=== PATIENT | male | born 1945 | race Caucasian/White ===

== ENCOUNTER 2018-12-24 18:29 | Emergency (ER) | payer OTHER, SELFPAY ==
[2018-12-24 18:40] VITALS: BP 120/59; PULSE 81; RESP 20; TEMP 36.7; O2SAT 97
--- NOTE | 2018-12-24 18:41 | DI.RAD.S_ITS ---
PROCEDURE: XR HAND LT MIN 3V INDICATIONS: lac from table saw digits 1-3 TECHNIQUE: 3 views of the hand(s) acquired. COMPARISON: None. FINDINGS: Bones: There is mildly displaced intra-articular fracture at the base of the distal second phalanx as well as small avulsion fractures at the distal aspect of the second middle phalanx. Small areas of adjacent osseous calcifications are noted. Soft tissues: No suspicious soft tissue calcifications. IMPRESSION: Fractures of the middle and distal second phalanx as above. Dictated by: Kimberley Choi M.D. on 12/24/2018 at 19:05 Approved by: Kimberley Choi M.D. on 12/24/2018 at 19:06
--- NOTE | 2018-12-24 18:48 | PC.NURSE ---
wound soak while waiting for x ray.
--- NOTE | 2018-12-24 19:26 | ED.WOUNDLAC ---
HPI - Wound/Laceration General Chief Complaint: Wound/Laceration Stated Complaint: Cut Fingers on Table Saw Time Seen by Provider: 12/24/18 19:26 Source: patient and family Mode of arrival: Ambulatory Limitations: no limitations History of Present Illness HPI narrative: This is a 73-year-old male comes to the emergency department with complaint of injuries to the 2nd 3rd and 4th fingers on his left hand. Patient was at home using a table saw when he caught his fingers. Patient states that it is painful but kind of feels like he hit his fingers with a hammer. He defers any pain medications currently. He does have sensation to touch in the distal fingers, he can flex and straight them although it is uncomfortable. Patient states his tetanus is up-to-date. He states he takes medication for hypertension but denies any medical is streams. He has had a prostate surgery but denies any other surgical history. Denies any allergies to medications. Patient lives on [facility]. He is right handed. Related Data Previous Rx's Medication Instructions Recorded lisinopril-hydrochlorothiazide 1 tab PO QDAY #90 tab 08/15/16 cephalexin [Keflex] 500 mg PO QID #40 cap 12/24/18 hydrocodone-acetaminophen [[place]] 1 tab PO Q6H PRN #10 tab 12/24/18 Review of Systems Review of Systems ROS Unobtainable: All systems reviewed & are unremarkable except as noted in HPI and below Exam Narrative Exam Narrative: GENERAL: Alert and oriented x three, well-nourished, well-appearing male in mild distress. HEENT: Head normocephalic, atraumatic, EOMI, pupils reactive, face symmetric, moist mucous membranes NECK: Supple, full range of motion CARDIOVASCULAR: Regular rate and rhythm without murmurs, rubs or gallops. RESPIRATORY: Breath sounds equal bilaterally, no wheezes rales or rhonchi. ABDOMEN: Soft, nontender. Normoactive bowel sounds all 4 quadrants. No guarding or rebound, rigidity, no mass EXTREMITIES: Patient has avulsion lacerations to the 2nd 3rd and 4th fingers. Patient has some small chunks of tissue missing but the majority of tissue is present and I am unable to visualize any bone. The majority of the injuries are in the more mid finger towards the distal end but not necessarily including the pad of the finger in all 3 fingers. There is no nail involvement. It is all on the volar side of the fingers. Patient is able to flex and straighten his fingers although he states it is uncomfortable. He does have cap refill less than 2 seconds in all 3 fingers. He has sensation to light touch although slightly decreased from the 12 to 2 o'clock position on the 2nd finger. He can feel sensation but slightly decreased. Patient has sensation throughout otherwise. He has 2+ radial pulse. NEUROLOGICAL: Cranial nerves II through XII grossly intact. Moving all extremities SKIN: Warm, dry, no petechiae, no rashes or lesions other than noted above Initial Vital Signs Initial Vital Signs: Vital Signs Temperature 98.1 F 12/24/18 18:40 Pulse Rate 81 12/24/18 18:40 Respiratory Rate 20 12/24/18 18:40 Blood Pressure 120/59 L 12/24/18 18:40 Pulse Oximetry 97 12/24/18 18:40 Course Orders Ordered: ED Orders 12/24/18 18:41 XR hand LT min 3V Stat Discontinued Medications Cephalexin HCl (Keflex) 500 mg PO NOW ONE Stop: 12/24/18 19:55 Last Admin: 12/24/18 20:08 Dose: 500 mg Documented by: AMBER Vital Signs Vital signs: Vital Signs - 8 hr 12/24/18 18:40 12/24/18 20:43 Temperature 98.1 F Pulse Rate 81 74 Respiratory Rate 20 18 Blood Pressure 120/59 L 118/68 Pulse Oximetry 97 99 MDM - Wound/Laceration Imaging Data hand xray: My impression: [address] [address] XRay Report Signed Patient: Gumaro JainMR#: [id number] : 6Acct:[id number] Age/Sex: 73 / MDate of Service: 12/24/18 Loc: ED Accession Number: [id number] Procedure: XR hand LT min 3V Ordering Provider: Afua Tamez D.O. PROCEDURE: XR HAND LT MIN 3V INDICATIONS: lac from table saw digits 1-3 TECHNIQUE: 3 views of the hand(s) acquired. COMPARISON: None. FINDINGS: Bones: There is mildly displaced intra-articular fracture at the base of the distal second phalanx as well as small avulsion fractures at the distal aspect of the second middle phalanx. Small areas of adjacent osseous calcifications are noted. Soft tissues: No suspicious soft tissue calcifications. IMPRESSION: Fractures of the middle and distal second phalanx as above. Dictated by: Kimberley Choi M.D. on 12/24/2018 at 19:05 Approved by: Kimberley Choi M.D. on 12/24/2018 at 19:06 Radiologist's impression: MDM Narrative Medical decision making narrative: Case was discussed with Dr. wu, patient does have fractures at the mid and distal 2nd phalanx. Patient also has avulsion injuries all the majority of the tissue was present they is enough missing that the tissue is not easily pulled together. Discussed with Dr. wu plan for oral antibiotics, wound care with some impregnated gauze. And plan for follow-up in the next week. Patient and daughter were instructed on wound care. Plan for short course of pain medication for patient although he defers any currently. I discussed reasons to return and signs and symptoms to watch for such as infection, decreased sensation, etc. Discharge Plan Departure Patient Disposition: Home Clinical Impression: Laceration of multiple sites of left hand and fingers Qualifiers: Encounter type: initial encounter Qualified Code(s): S61.412A - Laceration without foreign body of left hand, initial encounter Open fracture of finger of left hand Qualifiers: Encounter type: initial encounter Finger: middle finger Discharge Date/Time: 12/24/18 20:44 Instructions: DI for Open Laceration Activity Restrictions/Additional Instructions: Call tomorrow morning to set up follow-up with Orthopedic surgery. Below is the contact number for follow-up. Follow-up in the next 5-7 days. You may take ibuprofen up to 600 mg every 6 hours as needed for pain, you may take Tylenol up to a 1000 mg every 8 hours for pain. You may take prescription pain medication as directed. If you are taking this medication do not take Tylenol as you're maximum amount of Tylenol is 3000 mg in 24 hours. Splint Care: Keep splint clean and dry. Elevated affected body part to decrease swelling. OK to use ice pack on the affected body part. Use for 15-20 minutes each time, for 5-6x per day. If you develop worsening pain, numbness, tingling, discoloration of the affected body part, loosen the splint by loosening the ORALIA wrap, and either see your doctor for an urgent re-assessment, or return to the Emergency Department. Return to the Emergency Department for any new or worsening symptoms. Wound Care: Keep wound(s) clean and dry. Wash daily with soap and water only, pat/air dry. Do not use over the counter products (alcohol or peroxide)on the wounds unless instructed by a physician. You may use a small amount of triple antibiotic ointment to affected area. If wound condition worsens (increased/expanding redness, developing fluid blisters, or worsening pain), either contact your doctor for an urgent re-assessment , or return to the Emergency Department. Return to the Emergency Department for any new or worsening symptoms. Return if fever greater than 100.4 Fahrenheit, increased swelling, increasing pain or worsening symptoms such as increased discharge or spreading redness. Prescriptions: New hydrocodone-acetaminophen [[place]] 5-325 mg tablet 1 tab PO Q6H PRN (Reason: pain) Qty: 10 RF: 0 cephalexin [Keflex] 500 mg capsule 500 mg PO QID Qty: 40 RF: 0 No Action lisinopril-hydrochlorothiazide 20 MG/12.5 MG tablet 1 tab PO QDAY Qty: 90 RF: 3 Referrals: Krysta Christensen MD [Primary Care Provider] - Gumaro Hu MD [Physician] -
[2018-12-24] MEDS: cephALEXin 250 MG CAPSULE 500 MG PO (20:08)
--- NOTE | 2018-12-24 20:39 | PC.NURSE ---
Pr Joi, pt first second and third finger pads were cleaned with surgical scrub. 2 Aquacell ag extra 2x2 pads placed over lacerations, telfa pads placed over with kerlex used to keep dressing is place. orthoglass splint and jovani bandage placed to prevent movment and protect from hitting fingers on things. Pt restated precautions for too tight of a splint and how to loosen it if needed. Pt denies further needs.
[2018-12-24 20:43] VITALS: BP 118/68; PULSE 74; RESP 18; O2SAT 99
== END 2018-12-24 20:44 | disposition home or self-care (01) ==
PROVIDERS: Emergency Provider Emergency Medicine; PCP Family Medicine
DX: S62.623B Displaced fracture of middle phalanx of left middle finger, initial encounter for open fracture (principal); W31.2XXA Contact with powered woodworking and forming machines, initial encounter
CPT/HCPCS: 73130; 99283

== ENCOUNTER → 2019-01-02 09:48 | Outpatient (CLI) | payer OTHER, SELFPAY | PROVIDERS: PCP Family Medicine; Visit Provider Family Medicine | DX: S61.201A Unspecified open wound of left index finger without damage to nail, initial encounter (principal); S61.203A Unspecified open wound of left middle finger without damage to nail, initial encounter; S61.205A Unspecified open wound of left ring finger without damage to nail, initial encounter; W31.2XXA Contact with powered woodworking and forming machines, initial encounter | CPT/HCPCS: 11042; 99203; 99213 ==

== ENCOUNTER → 2019-01-09 13:26 | Outpatient (CLI) | payer OTHER, SELFPAY | PROVIDERS: PCP Family Medicine; Visit Provider Family Medicine | DX: S61.201A Unspecified open wound of left index finger without damage to nail, initial encounter (principal); S61.203A Unspecified open wound of left middle finger without damage to nail, initial encounter; S61.205A Unspecified open wound of left ring finger without damage to nail, initial encounter; W31.2XXA Contact with powered woodworking and forming machines, initial encounter | CPT/HCPCS: 11042 ==

== ENCOUNTER → 2019-01-16 09:36 | Outpatient (CLI) | payer OTHER, SELFPAY | PROVIDERS: PCP Family Medicine; Visit Provider Family Medicine | DX: S61.201A Unspecified open wound of left index finger without damage to nail, initial encounter (principal); S61.205A Unspecified open wound of left ring finger without damage to nail, initial encounter; W31.2XXA Contact with powered woodworking and forming machines, initial encounter; S61.203D Unspecified open wound of left middle finger without damage to nail, subsequent encounter | CPT/HCPCS: 11042 ==

== ENCOUNTER → 2019-01-23 13:28 | Outpatient (CLI) | payer OTHER, SELFPAY | PROVIDERS: PCP Family Medicine; Visit Provider Family Medicine | DX: S61.201A Unspecified open wound of left index finger without damage to nail, initial encounter (principal); S61.205D Unspecified open wound of left ring finger without damage to nail, subsequent encounter | CPT/HCPCS: 97597 ==

== ENCOUNTER → 2021-07-22 08:59 | Outpatient (CLI) | payer MEDICARE, SELFPAY ==
[2021-07-22 18:32] LABS: Add Manual Diff / Slide Review NO; Basophils Absolute Auto 0 /uL (0-100); Basophils Percent Auto 0.5 % (0-2); Eosinophils Absolute Auto 100 /uL (0-450); Eosinophils Percent Auto 2.5 % (2-4); Hematocrit 40.7 % (41-53); Hemoglobin 14.1 g/dL (13.5-17.5); Lymphocytes Absolute Auto 1100 /uL (1100-4500); Lymphocytes Percent Auto 29.4 % (25-40); Mean Corpuscular HGB Conc 34.7 % (30-36); Mean Corpuscular Hemoglobin 31.7 PG (26-34); Mean Corpuscular Volume 91.3 fL (80-100); Monocytes Absolute Auto 600 /uL (0-900); Monocytes Percent Auto 15.2 % (3-14); Neutrophils Absolute Auto 2000 /uL (1500-7000); Neutrophils Percent Auto 52.4 % (50-75); Platelet Count 256 X10^3/uL (150-400); Red Blood Cell Count 4.46 X10^6/uL (4.5-5.9); Red Cell Distribution Width 13.2 % (11.6-14.8); White Blood Cell Count 3.9 X10^3/uL (4.5-11.0)
[2021-07-22 18:46] LABS: Alanine Aminotransferase 25 IU/L (<50); Albumin 3.9 g/dL (3.5-5.0); Albumin Globulin Ratio 1.3 (1.0-2.8); Alkaline Phosphatase 61 U/L (38-126); Aspartate Aminotransferase 41 IU/L (17-59); BUN Creatinine Ratio 17.9 (6-22); Bilirubin Total 0.6 mg/dL (0.2-1.3); Blood Urea Nitrogen 21 mg/dL (9-20); Calcium 9.2 mg/dL (8.4-10.2); Carbon Dioxide 27 mmol/L (22-32); Chloride 103 mmol/L (98-107); Cholesterol 162 mg/dL (140-199); Estimated Glomerular Filt Rate > 60 mL/min (>60); Globulin 2.9 g/dL (1.7-4.1); Glucose 97 mg/dL (80-110); HDL Cholesterol 40 mg/dL (40-60); HEMOLYSIS < 15 (0-50); LDL Cholesterol Calculated 110 mg/dL (<100); Potassium 4.3 mmol/L (3.4-5.1); Sodium 135 mmol/L (137-145); Total Protein 6.8 g/dL (6.3-8.2); Triglycerides 58 mg/dL (35-150)
[2021-07-22 19:14] LABS: Prostate Specific Antigen Scrn < 0.064 ng/mL (0.1-4.0)
== END ==
PROVIDERS: PCP Family Medicine; Visit Provider Family Medicine
DX: C61 Malignant neoplasm of prostate (principal); I10 Essential (primary) hypertension; N18.30 Chronic kidney disease, stage 3 unspecified; R97.20 Elevated prostate specific antigen [PSA]; Z00.00 Encounter for general adult medical examination without abnormal findings; Z12.5 Encounter for screening for malignant neoplasm of prostate
CPT/HCPCS: 80053; 80061; 85025; G0103

== ENCOUNTER → 2022-06-08 12:03 | Outpatient (CLI) | payer MEDICARE, SELFPAY ==
[2022-06-08 19:54] LABS: Prostate Specific Antigen < 0.064 ng/mL (0.10-4.00)
[2022-06-09 16:13] LABS: Hep C Virus Ab w/Reflex Quant NEGATIVE s/c (NEGATIVE)
== END ==
PROVIDERS: Physician Assistant; PCP Family Medicine; Visit Provider Family Medicine
DX: C61 Malignant neoplasm of prostate (principal); Z11.59 Encounter for screening for other viral diseases
CPT/HCPCS: 84153; 86803

== ENCOUNTER → 2023-01-05 10:18 | Outpatient (CLI) | payer MEDICARE, SELFPAY ==
[2023-01-05 19:15] LABS: Add Manual Diff / Slide Review NO; Basophils Absolute Auto 0 /uL (0-100); Basophils Percent Auto 0.4 % (0-2); Eosinophils Absolute Auto 100 /uL (0-450); Eosinophils Percent Auto 2.4 % (2-4); Hematocrit 41.9 % (41-53); Hemoglobin 14.3 g/dL (13.5-17.5); Lymphocytes Absolute Auto 1400 /uL (1100-4500); Mean Corpuscular HGB Conc 34.1 % (30-36); Mean Corpuscular Hemoglobin 31.7 PG (26-34); Mean Corpuscular Volume 92.8 fL (80-100); Monocytes Absolute Auto 600 /uL (0-900); Monocytes Percent Auto 12.3 % (3-14); Neutrophils Absolute Auto 2400 /uL (1500-7000); Neutrophils Percent Auto 52.9 % (50-75); Platelet Count 226 X10^3/uL (150-400); Red Blood Cell Count 4.51 X10^6/uL (4.5-5.9); Red Cell Distribution Width 13.1 % (11.6-14.8); White Blood Cell Count 4.5 X10^3/uL (4.5-11.0)
[2023-01-05 19:28] LABS: Alanine Aminotransferase 26 IU/L (<50); Albumin 3.8 g/dL (3.5-5.0); Albumin Globulin Ratio 1.2 (1.0-2.8); Alkaline Phosphatase 58 U/L (38-126); Aspartate Aminotransferase 37 IU/L (17-59); BUN Creatinine Ratio 23.8 (6-22); Bilirubin Total 0.6 mg/dL (0.2-1.3); Blood Urea Nitrogen 25 mg/dL (9-20); Calcium 9.6 mg/dL (8.4-10.2); Carbon Dioxide 25 mmol/L (22-32); Chloride 105 mmol/L (98-107); Cholesterol 191 mg/dL (140-199); Estimated Glomerular Filt Rate > 60 mL/min (>60); Globulin 3.3 g/dL (1.7-4.1); Glucose 94 mg/dL (80-110); HDL Cholesterol 47 mg/dL (40-60); HEMOLYSIS < 15 (0-50); LDL Cholesterol Calculated 132 mg/dL (<100); Potassium 4.1 mmol/L (3.4-5.1); Sodium 137 mmol/L (137-145); Total Protein 7.1 g/dL (6.3-8.2); Triglycerides 62 mg/dL (35-150)
[2023-01-05 19:42] LABS: Creatinine Urine Random 155.1 mg/dL
[2023-01-05 19:52] LABS: Microalbumin Urine Random < 0.6 mg/dL (0-1.6)
[2023-01-05 20:12] LABS: Prostate Specific Antigen < 0.064 ng/mL (0.10-4.00)
== END ==
PROVIDERS: PCP Family Medicine; Visit Provider Physician Assistant Medical
DX: I10 Essential (primary) hypertension; Z12.11 Encounter for screening for malignant neoplasm of colon; Z11.2 Encounter for screening for other bacterial diseases; Z11.8 Encounter for screening for other infectious and parasitic diseases; C61 Malignant neoplasm of prostate; N18.30 Chronic kidney disease, stage 3 unspecified
CPT/HCPCS: 80053; 80061; 82043; 82570; 84153; 85025

== ENCOUNTER → 2023-02-22 11:26 | Outpatient (CLI) | payer MEDICARE, SELFPAY ==
--- NOTE | 2023-02-22 11:26 | DI.CT.S_ITS ---
PROCEDURE: CT ABDOMEN PELVIS W CON INDICATIONS: RLQ pain TECHNIQUE: After the administration of oral and intravenous contrast, axial sections were acquired from the lung bases to the pubic symphysis. Coronal and sagittal reformats were performed. For radiation dose reduction, the following was used: automated exposure control, adjustment of mA and/or kV according to patient size. COMPARISON: None. FINDINGS: Image quality: Diagnostic. Lung bases: Unremarkable. Heart: No significant findings. ABDOMEN: Liver: Subcentimeter hypodensities are too small to characterize, probable cysts or hemangiomas. Gallbladder: No radiopaque gallstones or wall thickening. Biliary ducts: No biliary dilation. Pancreas: No ductal dilation. Spleen: Size is within normal limits. Adrenal Glands: No adrenal nodules. Kidneys and Ureters: No hydronephrosis. No solid mass. No complex renal cystic lesion which requires follow up. Stomach and Bowel: Normal colonic caliber, without significant wall thickening. Appendix is not definitely visualized, however there is no secondary signs of inflammation in the right lower quadrant. Peritoneum: No abnormal intraperitoneal fluid. No free air. Ventral Wall: No hernia. Abdominal Nodes: No retroperitoneal or mesenteric adenopathy by size criteria. Vessels: Aorta and inferior vena cava are normal in size. Aorto bi iliac atherosclerotic calcifications. PELVIS: Pelvic Organs: Unremarkable. Bladder: Unremarkable. Pelvic Nodes: No enlarged lymph nodes. Miscellaneous: No inguinal hernias are seen. Bones: No acute or suspicious osseous abnormality. Moderate degenerative changes of the lumbar spine, worse at L5-S1. Trace retrolisthesis of L5 on S1 . Mild dextro convex curvature of the lumbar spine centered at L2-L3. IMPRESSION: No acute findings of the abdomen pelvis to explain patient's symptoms. Dictated by: Mini Cotto M.D. on 02/22/2023 at 14:30 Approved by: Mini Cotto M.D. on 02/22/2023 at 14:37
[2023-02-22 12:38] LABS: Alanine Aminotransferase 26 IU/L (<50); Albumin Globulin Ratio 1.2 (1.0-2.8); Alkaline Phosphatase 53 U/L (38-126); Aspartate Aminotransferase 38 IU/L (17-59); BUN Creatinine Ratio 20.6 (6-22); Bilirubin Total 0.7 mg/dL (0.2-1.3); Blood Urea Nitrogen 21 mg/dL (9-20); Calcium 9.5 mg/dL (8.4-10.2); Carbon Dioxide 26 mmol/L (22-32); Chloride 104 mmol/L (98-107); Cholesterol 117 mg/dL (140-199); Estimated Glomerular Filt Rate > 60 mL/min (>60); Globulin 3.4 g/dL (1.7-4.1); Glucose 94 mg/dL (80-110); HDL Cholesterol 42 mg/dL (40-60); HEMOLYSIS < 15 (0-50); LDL Cholesterol Calculated 65 mg/dL (<100); Sodium 137 mmol/L (137-145); Total Protein 7.4 g/dL (6.3-8.2); Triglycerides 50 mg/dL (35-150)
== END ==
PROVIDERS: Physician Assistant Medical; PCP Family Medicine; Referring Provider Family Medicine; Visit Provider Family Medicine
DX: E78.00 Pure hypercholesterolemia, unspecified (principal); R10.31 Right lower quadrant pain
CPT/HCPCS: 36415; 74177; 80053; 80061; Q9967

== ENCOUNTER 2024-01-14 10:47 | Emergency (ER) | payer MEDICARE, SELFPAY ==
[2024-01-14 10:50] VITALS: BP 140/71; PULSE 60; RESP 18; TEMP 36.9; O2SAT 98; BMI 25.4
--- NOTE | 2024-01-14 10:55 | DI.RAD.S_ITS ---
PROCEDURE: XR ELBOW RT MIN 3V INDICATIONS: reduced flexion after lifting log 3 days ago. TECHNIQUE: 3 views of the elbow were acquired. COMPARISON: None. FINDINGS: Bones: No fractures or dislocations. No suspicious bony lesions. There is dystrophic calcification about the medial epicondyle and tiny osteophytes at the radial head. Soft tissues: No elbow joint effusion. No suspicious soft tissue calcifications. IMPRESSION: No acute bony abnormality or significant joint effusion. Dictated by: Nellie Booth M.D. on 01/14/2024 at 10:33 Approved by: Nellie Booth M.D. on 01/14/2024 at 10:34
[2024-01-14 10:56] VITALS: PULSE 64
--- NOTE | 2024-01-14 11:18 | ED.UPPEXIN ---
HPI - Extremity Injury (Upper) <CATHY Peace - Last Filed: 01/14/24 12:03> General Chief Complaint: Extremity Injury, Upper Stated Complaint: R elbow pain, arm swelling Time Seen by Provider: 01/14/24 11:11 Source: patient Mode of arrival: Ambulatory History of Present Illness HPI narrative: 78-year-old male, never smoker, presents to the emergency department with right elbow pain x4 days. Patient states that he was lifting a log onto a tailgate 4 days ago, but denies any sensation of popping, twinge or pain at that time. Early the next morning, patient started reporting pain of the right medial elbow and has progressively lost range of motion. Patient endorses swelling of the medial right elbow and pain with palpation or movement past 80?. Related Data Previous Rx's Medication Instructions Recorded lidocaine 5 % topical ointment 1 applic topical TID PRN Left foot 05/18/22 pain #30 grams atorvastatin 20 mg tablet 20 mg PO DAILY #90 tabs 12/28/23 losartan 50 mg-hydrochlorothiazide 1 tab PO DAILY #90 tabs 01/02/24 12.5 mg tablet oxycodone-acetaminophen 5 mg-325 1 tab PO Q4-6H PRN pain #10 tabs 01/14/24 mg tablet (Percocet) Allergies Allergy/AdvReac Type Severity Reaction Status Date / Time No Known Drug Allergies Allergy Verified 03/27/23 09:14 Review of Systems <CATHY Peace - Last Filed: 01/14/24 12:03> Review of Systems Narrative: Narrative: See HPI. GENERAL: Denies chills, fatigue, fever, sweats. HEENT: Denies sinus pain, ear pain, sore throat, difficulty swallowing, dizziness. RESPIRATORY: Denies dyspnea, cough, wheezing, sputum. CARDIOVASCULAR: Denies chest pain, palpitations, edema. GASTROINTESTINAL: Denies nausea, vomiting, abdominal pain, diarrhea, constipation. : Denies dysuria, frequency, incontinence, hematuria, urinary retention, flank pain. MSK: Denies weakness. Endorses right elbow pain. Endorses right hand mildly edematous compared to left. SKIN: Denies rash, skin lesions, or pruritis. NEUROLOGIC: Denies weakness, dizziness, headache, numbness, confusion. PSYCHIATRIC: No concerning psychosocial issues. Patient History <CATHY Peace - Last Filed: 01/14/24 12:03> Medical History Seasonal allergic rhinitis Impacted cerumen of left ear Screening, lipid Encounter for hepatitis C screening test for low risk patient H/O prostate cancer Complicated laceration of finger (~12/24/18) Hand injury (~12/24/18) Open nondisplaced fracture of distal phalanx of left index finger with routine healing (~12/28/18) Encounter for post-traumatic wound check Encounter for examination for driving license Surgical History H/O prostatectomy Social History Smoking Status: Never smoker Smoking Status: Never smoker Substance Use Type: does not use Exam <CATHY Peace - Last Filed: 01/14/24 12:03> Narrative Exam Narrative: Exam Narrative: GENERAL: This is a well-nourished, well-developed patient, in no acute distress. HEAD: Atraumatic. Normocephalic. EYES: Pupils equal round and reactive. No scleral icterus, injection or drainage. ENT: Nose without bleeding, purulent drainage. Airway patent. CARDIOVASCULAR: Regular rate and rhythm without murmurs, peripheral pulses intact, cap refill <2 sec. RESPIRATORY: Normal respiratory rate and effort. MSK: Moves all extremities. Decreased range of motion, no clubbing. Right hand mildly edematous compared to left hand. Neurovascularly intact. NEURO: A&O x 3. SKIN: Warm, dry, no rashes or lesions noted. Scabbed over wounds right hand and elbow. ELBOW: There is swelling, but no bruising or asymmetry. There is tenderness to palpation over the medial epicondyle, but no tenderness to palpation over the olecranon, lateral epicondyle. There is no specific soft tissue pain. Sensation grossly intact. Range of motion is limited due to pain. Range of motion of the shoulder and wrist is intact. Patient is unable to pronate and supinate without pain. Resistive strength for flexion and extension is intact. The contralateral elbow exam is unremarkable. Initial Vital Signs Initial Vital Signs: Vital Signs Temperature 98.5 F 01/14/24 10:50 Pulse Rate 60 01/14/24 10:50 Respiratory Rate 18 01/14/24 10:50 Blood Pressure 140/71 01/14/24 10:50 Pulse Oximetry 98 01/14/24 10:50 Oxygen Delivery Method Room Air 01/14/24 10:50 Reviewed <Farzana Cintron DO - Last Filed: 01/14/24 18:18> Initial Vital Signs Initial Vital Signs: Vital Signs Temperature 98.5 F 01/14/24 10:50 Pulse Rate 60 01/14/24 10:50 Respiratory Rate 18 01/14/24 10:50 Blood Pressure 140/71 01/14/24 10:50 Pulse Oximetry 98 01/14/24 10:50 Oxygen Delivery Method Room Air 01/14/24 10:50 Course <CATHY Peace - Last Filed: 01/14/24 12:03> Orders Ordered: ED Orders 01/14/24 10:55 XR elbow RT min 3V Stat Vital Signs Vital signs: Vital Signs - 8 hr 01/14/24 10:50 01/14/24 10:56 Temperature 98.5 F Pulse Rate 60 Pulse Rate [Right Radial] 64 Respiratory Rate 18 Blood Pressure 140/71 Pulse Oximetry 98 Oxygen Delivery Method Room Air <Farzana Cintron DO - Last Filed: 01/14/24 18:18> Orders Ordered: ED Orders 01/14/24 10:55 XR elbow RT min 3V Stat Vital Signs Vital signs: Vital Signs - 8 hr 01/14/24 10:50 01/14/24 10:56 Temperature 98.5 F Pulse Rate 60 Pulse Rate [Right Radial] 64 Respiratory Rate 18 Blood Pressure 140/71 Pulse Oximetry 98 Oxygen Delivery Method Room Air MDM - Extremity Injury (Upper) <CATHY Peace - Last Filed: 01/14/24 12:03> Differential Diagnosis Differential diagnosis: Likely other (Elbow fracture, medial epicondylitis, elbow effusion, upper extremity injury) Imaging Data Extremity x-ray #1: My Impression: Normal elbow. Radiologist's Impression: [address] [address] XRay Report Signed Patient: Gumaro Jain MR#: [id number] : 1945 Acct:[id number] Age/Sex: 78 / M Date of Service: 01/14/24 Loc: ED Accession Number: [id number] Procedure: XR elbow RT min 3V Ordering Provider: Farzana Cintron D.O. PROCEDURE: XR ELBOW RT MIN 3V INDICATIONS: reduced flexion after lifting log 3 days ago. TECHNIQUE: 3 views of the elbow were acquired. COMPARISON: None. FINDINGS: Bones: No fractures or dislocations. No suspicious bony lesions. There is dystrophic calcification about the medial epicondyle and tiny osteophytes at the radial head. Soft tissues: No elbow joint effusion. No suspicious soft tissue calcifications. IMPRESSION: No acute bony abnormality or significant joint effusion. Dictated by: Nellie Booth M.D. on 01/14/2024 at 10:33 Approved by: Nellie Booth M.D. on 01/14/2024 at 10:34 [facility] Narrative Medical decision making narrative: 78-year-old male presents to the emergency department with complaints of right elbow pain and decreased range of motion x4 days of Unknown etiology. X-ray was negative for fracture but did show medial calcification and osteophytes. Will treat with supportive care to include rest, ice, Eric wrap and elevation. Discussed pain management with patient and will provide a short course of pain medication. No previous pain medication prescriptions on record. Discussed plan of care and worsening symptoms that would necessitate a visit to the emergency department. Patient verbalized understanding and was agreeable with course of action. Discharge Plan Departure Patient Disposition: Home Clinical Impression: Pain of upper extremity Qualifiers: Laterality: right Qualified Code(s): M79.601 - Pain in right arm Instructions: DI for Elbow Pain Activity Restrictions/Additional Instructions: *You have been diagnosed with right elbow pain. It was a pleasure meeting you and I am sorry that you injured your elbow. The good news is the x-ray was normal and there are no fractures or joint effusions. Treatment for this type of injury is supportive in nature that includes Rest (modified activity), along with ice, compression wrap/splint-immobilize as directed and elevation above heart. Tylenol or Ibuprofen for discomfort. I will give you a short course of pain medication but also note that if you take 400 mg of ibuprofen with 500 mg of Tylenol, it may very well help just as well. If symptoms worsen, such as intolerable pain, increased redness or temperature of right elbow, please return to the emergency department. Otherwise, follow up with your family doctor as needed. *What to do: *Please continue to take your regular medications as directed. [x ] New medication prescriptions sent to your pharmacy: [ [facility]] [ ] New medication written as a paper prescription [ ] No new medications given *Please follow up with your primary care provider in 2-3 days, call for an appointment. Let them know you were seen in the Emergency Department and that we ask that you be seen in follow up. We will electronically transmit a record of today's note if your PCP is in our system *If you do not have a primary care provider please contact the [facility] Resource line at [phone]. They will ask some questions about your medical history and help get you set up with a doctor in the community. ? Return to ER if you should have any new, worsening or concerning symptoms, such as worsening pain, severe headache, confusion, chest pain, difficulty breathing, fever greater than 101 F, shaking chills, persistent vomiting to the point that you cannot drink fluids, or other new or worsening symptoms. Prescriptions: New oxycodone-acetaminophen [Percocet] 5-325 mg tablet 1 tab PO Q4-6H PRN (Reason: pain) Qty: 10 0RF No Action lidocaine 5 % ointment 1 applic topical TID PRN (Reason: Left foot pain) Qty: 30 3RF Rx Instructions: can use up to a maximum of three times daily atorvastatin 20 mg tablet 20 mg PO DAILY Qty: 90 0RF losartan-hydrochlorothiazide 50-12.5 mg tablet 1 tab PO DAILY Qty: 90 0RF Referrals: Renato Otoole MD [Primary Care Provider] - Stand Alone Forms: Patient Portal/API/Survey ED Sign-out <Farzana Cintron DO - Last Filed: 01/14/24 18:18> Cosign ED Attending Maria Elenaature Attestation: I was available for consultation.
== END 2024-01-14 12:08 | disposition home or self-care (01) ==
PROVIDERS: Emergency Provider Registered Nurse; Family Provider Family Medicine; PCP Family Medicine
DX: M79.601 Pain in right arm (principal)
CPT/HCPCS: 73080; 99281; 99283

== ENCOUNTER → 2024-02-23 08:12 | Outpatient (CLI) | payer MEDICARE, SELFPAY ==
[2024-02-23 20:31] LABS: Cholesterol 117 mg/dL (140-199); Glucose 95 mg/dL (80-110); HDL Cholesterol 39 mg/dL (40-60); LDL Cholesterol Calculated 66 mg/dL (<100); Triglycerides 58 mg/dL (35-150)
[2024-02-23 21:04] LABS: Prostate Specific Antigen Scrn < 0.064 ng/mL (0.1-4.0)
== END ==
PROVIDERS: Family Provider Family Medicine; PCP Family Medicine; Visit Provider Family Medicine
DX: Z13.1 Encounter for screening for diabetes mellitus (principal); Z11.59 Encounter for screening for other viral diseases; Z13.220 Encounter for screening for lipoid disorders; Z12.5 Encounter for screening for malignant neoplasm of prostate; Z13.6 Encounter for screening for cardiovascular disorders
CPT/HCPCS: 80061; 82947; G0103

== ENCOUNTER → 2024-11-26 11:27 | Outpatient (CLI) | payer MEDICARE, OTHER, SELFPAY ==
[2024-11-26 19:03] LABS: Add Manual Diff / Slide Review NO; Hematocrit 39.8 % (41-53); Hemoglobin 13.8 g/dL (13.5-17.5); Lymphocytes Absolute Auto 1400 /uL (1100-4500); Mean Corpuscular HGB Conc 34.6 % (30-36); Mean Corpuscular Hemoglobin 31.8 PG (26-34); Mean Corpuscular Volume 92.1 fL (80-100); Platelet Count 219 X10^3/uL (150-400)
[2024-11-26 19:10] LABS: Blood Urea Nitrogen 23 mg/dL (9-20); Calcium 9.2 mg/dL (8.4-10.2); Carbon Dioxide 24 mmol/L (22-32); Chloride 104 mmol/L (98-107); Estimated Glomerular Filt Rate > 60 mL/min (>60); Glucose 95 mg/dL (70-99); HEMOLYSIS < 15 (0-50); Potassium 3.9 mmol/L (3.4-5.1); Sodium 136 mmol/L (137-145)
[2024-11-26 19:50] LABS: Prostate Specific Antigen < 0.064 ng/mL (0.10-4.00)
== END ==
PROVIDERS: Family Provider Family Medicine; PCP Family Medicine; Visit Provider Family Medicine
DX: I10 Essential (primary) hypertension (principal); C61 Malignant neoplasm of prostate; N18.30 Chronic kidney disease, stage 3 unspecified
CPT/HCPCS: 80048; 84153; 85025

== ENCOUNTER → 2024-12-30 10:06 | Outpatient (CLI) | payer MEDICARE, SELFPAY ==
[2024-12-30 19:22] LABS: HEMOLYSIS < 15 (0-50); Iron 105 ug/dL (49-181)
[2024-12-30 19:26] LABS: Cholesterol 116 mg/dL (140-199); HDL Cholesterol 41 mg/dL (40-60); Triglycerides 52 mg/dL (35-150)
[2024-12-30 19:34] LABS: Percent Iron Saturation 35 % (20-50); Total Iron Binding Capacity 299 ug/dL (261-462); Transferrin 239 mg/dL (206-381)
[2024-12-30 20:12] LABS: Vitamin B12 556 pg/mL (239-931)
== END ==
PROVIDERS: Family Provider Family Medicine; PCP Family Medicine; Visit Provider Family Medicine
DX: E78.2 Mixed hyperlipidemia (principal); D64.9 Anemia, unspecified
CPT/HCPCS: 80061; 82607; 83540; 83550